=== PATIENT | male | born 1925 | race Caucasian/White ===

== ENCOUNTER 2016-10-04 09:12 | Inpatient (IN) | payer OTHER ==
[~2016-10-04] VITALS: Ht 188 cm; Wt 79.9 kg
[2016-10-04] VITALS (12 sets, daily range): BP systolic 133–174; BP diastolic 47–71
[~2016-10-04 09:12] MED LIST: ALBUTEROL SULF8.5 GM IH; ASPIRIN81 M1 PO; BRAND FLOMAX0.4 MG PO; FUROSEMIDE20 MG PO; FUROSEMIDE40 MG PO; GLUCOVANCE PO; LABETALOL HCL100 MG PO; LOSARTAN POTASS50 MG PO; MIRALAX, GLYCOL1 PKT PO; MORPHINE SULFAT15 M3 PO; SENNA PLUS TAB1 EACH PO; THERAGRAN M PO; VITAMIN B12-FO1 EACH PO; [UNRECOGNIZED DRUG - REMARK]; [UNRECOGNIZED DRUG - REMARK]; [UNRECOGNIZED DRUG - REMARK]
[2016-10-04 10:08] LABS: BASOPHIL COUNT 0.1 K/uL (0-0.1); EOSINOPHIL (%) 8.3 % (0-5); EOSINOPHIL COUNT 0.7 K/uL (0-0.3); HEMATOCRIT 45.3 % (38.0-50.0); IMMATURE GRANULOCYTE (%) 0.6 % (0.0-0.7); IMMATURE GRANULOCYTE COUNT 0.1 K/uL; INSTRUMENT ABS NEUTROPHIL CT 4.4 K/uL; LYMPHOCYTE COUNT 2.6 K/uL (1.0-2.8); MCH 31.5 PG (29.0-34.0); MCHC 33.6 G/DL (30.0-36.0); MEAN PLAT.VOLUME 10.8 uM^3 (9.0-12.4); MONOCYTE (%) 9.2 % (3-12); MONOCYTE COUNT 0.8 K/uL (0-0.8); NEUTROPHIL (%) 50.8 % (45-76); NEUTROPHIL COUNT 4.4 K/uL (1.8-6.4); PLATELET COUNT 170 K/uL (156-360); RBC DIS.WIDTH-CV 13.2 % (11.8-14.6); RBC DIS.WIDTH-SD 45.3 % (39-53); RED BLOOD COUNT 4.82 M/uL (4.00-5.50); WHITE BLOOD COUNT 8.6 K/uL (4.1-10.2)
[2016-10-04 10:18] LABS: CHLORIDE 103 mEq/L (99-109); POTASSIUM 3.9 mEq/L (3.7-5.4); PROTHROMBIN TIME 30.1 (9.2-11.2); PTT 40.1 (25-32); SODIUM 137 mEq/L (136-147)
[2016-10-04 10:20] LABS: GLUCOSE 173 mg/dL (70-99)
[2016-10-04 10:21] LABS: ANION GAP 8 MEQ/L (2-14)
[2016-10-04 10:23] LABS: GFR ESTIMATE (CALCULATED) > 59 mL/min/
[2016-10-04 10:24] LABS: UREA NITROGEN (BUN) 17 mg/dL (9-23)
[2016-10-04 10:25] LABS: INTER. NORMALIZED RATIO 2.9
[2016-10-04 10:28] LABS: TROP-I INTERPRETATION NEGATIVE; TROPONIN-I < 0.01 ng/mL (0.0-0.30)
[2016-10-04] MEDS ORDERED: ASPIR-LOW81 MG PO (12:39)
[2016-10-04] MEDS ORDERED: CALCIUM 600 +1 EAC2 PO (12:41)
[2016-10-04] MEDS ORDERED: WARFARIN SODIUM2 MG PO (12:42)
[2016-10-04] MEDS ORDERED: CHOLESTYRAMINE P4 GM PO (12:42)
[2016-10-04] MEDS ORDERED: HYDROCHLOROTHIA50 MG PO (12:43)
[2016-10-04] MEDS ORDERED: LOSARTAN POTASS25 MG PO (12:44)
[2016-10-04] MEDS ORDERED: MULTI VITAMIN1 EACH PO (12:45)
[2016-10-04] MEDS ORDERED: POTASSIUM CHLO20 ME2 PO (12:45)
[2016-10-04] MEDS ORDERED: FLUOXETINE HCL10 MG PO (12:46)
[2016-10-04] MEDS ORDERED: TRAMADOL HCL50 MG PO (12:47)
[2016-10-04] MEDS ORDERED: TRAZODONE HCL50 MG PO (12:47)
[2016-10-04] MEDS ORDERED: NATURAL BALANCE15 M1 BOTH EYES (12:48)
[2016-10-04] MEDS ORDERED: DULCOLAX10 MG PR (12:48)
[2016-10-04] MEDS ORDERED: FLEET ENEMA-AD118 ML PR (12:49)
[2016-10-04] MEDS ORDERED: MILK OF MAGN PO (12:49)
[2016-10-04] MEDS ORDERED: ACETAMINOPHEN325 M1 PO (12:51)
[2016-10-04 14:06] LABS: METH RESISTANT S AUREUS PCR NEGATIVE (NEGATIVE)
[2016-10-04 14:07] LABS: PROBE CHECK PASS; SPECIMEN PROCESSING CONTROL PASS
[2016-10-05] VITALS (14 sets, daily range): BP systolic 0–156; BP diastolic 0–80
[2016-10-05 09:36] LABS: INTER. NORMALIZED RATIO 3.1; PROTHROMBIN TIME 32.3 (9.2-11.2); PTT 41.9 (25-32)
[2016-10-05 09:54] LABS: Estimated Average Glucose 151 mg/dL (70-123); HEMOGLOBIN A1c (GLYCOHEMOGLOB) 6.9 % HGB (Below 5.7)
[2016-10-05 11:50] LABS: ANION GAP 8 MEQ/L (2-14); CHLORIDE 104 MEQ/L (99-109); MAGNESIUM 1.8 mg/dl (1.3-2.7); SAMPLE HEMOLYSIS CHECK 0; SAMPLE ICTERIC CHECK 0; SAMPLE LIPEMIA CHECK 0; SODIUM 139 MEQ/L (136-147)
[2016-10-05 11:56] LABS: GFR ESTIMATE (CALCULATED) > 59 mL/min/; GLUCOSE 131 mg/dL (70-99); UREA NITROGEN (BUN) 19 mg/dL (9-23)
[2016-10-05 15:07] LABS: INTER. NORMALIZED RATIO 2.8; PROTHROMBIN TIME 29.3 (9.2-11.2); PTT 39.2 (25-32)
[2016-10-06] VITALS (13 sets, daily range): BP systolic 92–170; BP diastolic 36–78
[2016-10-06 04:39] LABS: CHLORIDE 107 mEq/L (99-109); POTASSIUM 4.3 mEq/L (3.7-5.4); SODIUM 141 mEq/L (136-147)
[2016-10-06 04:40] LABS: INTER. NORMALIZED RATIO 1.9; MAGNESIUM 2.3 mg/dL (1.3-2.7); PROTHROMBIN TIME 20.1 (9.2-11.2); PTT 35.7 (25-32)
[2016-10-06 04:41] LABS: GLUCOSE 134 mg/dL (70-99)
[2016-10-06 04:42] LABS: ANION GAP 7 MEQ/L (2-14)
[2016-10-06 04:45] LABS: GFR ESTIMATE (CALCULATED) > 59 mL/min/
[2016-10-06 04:46] LABS: UREA NITROGEN (BUN) 20 mg/dL (9-23)
[2016-10-06 07:48] LABS: FIBRINOGEN 367 MG/DL (160-450)
[2016-10-07] VITALS: BP 143/65
[2016-10-07 02:00] VITALS: BP 143/70
[2016-10-07 04:00] VITALS: BP 129/61
[2016-10-07 06:00] VITALS: BP 123/68
[2016-10-07 07:27] LABS: EOSINOPHIL (%) 6.7 % (0-5); EOSINOPHIL COUNT 0.5 K/uL (0-0.3); HEMATOCRIT 45.4 % (38.0-50.0); IMMATURE GRANULOCYTE (%) 0.4 % (0.0-0.7); INSTRUMENT ABS NEUTROPHIL CT 4.3 K/uL; LYMPHOCYTE COUNT 1.8 K/uL (1.0-2.8); MCH 31.6 PG (29.0-34.0); MCHC 33.7 G/DL (30.0-36.0); MCV 93.8 FL (86-99); MONOCYTE (%) 9.8 % (3-12); MONOCYTE COUNT 0.7 K/uL (0-0.8); NEUTROPHIL (%) 58.4 % (45-76); NEUTROPHIL COUNT 4.3 K/uL (1.8-6.4); PLATELET COUNT 185 K/uL (156-360); RBC DIS.WIDTH-CV 13.3 % (11.8-14.6); RBC DIS.WIDTH-SD 46.2 % (39-53); RED BLOOD COUNT 4.84 M/uL (4.00-5.50); WHITE BLOOD COUNT 7.3 K/uL (4.1-10.2)
[2016-10-07 07:36] LABS: INTER. NORMALIZED RATIO 1.3; PROTHROMBIN TIME 13.5 (9.2-11.2); PTT 31.6 (25-32)
[2016-10-07 07:48] LABS: ANION GAP 6 MEQ/L (2-14); CHLORIDE 107 MEQ/L (99-109); GFR ESTIMATE (CALCULATED) > 59 mL/min/; GLUCOSE 117 mg/dL (70-99); POTASSIUM 4.2 MEQ/L (3.7-5.4); SAMPLE HEMOLYSIS CHECK 0; SAMPLE ICTERIC CHECK 0; SAMPLE LIPEMIA CHECK 0; SODIUM 141 MEQ/L (136-147); UREA NITROGEN (BUN) 20 mg/dL (9-23)
[2016-10-07 08:00] VITALS: BP 155/72
[2016-10-07 12:00] VITALS: BP 134/65
== END 2016-10-07 13:53 | DRG 259 ==
LOC: EME 09:12 → EDOF 11:43 → 4WEST 11:43
PROVIDERS: Emergency Medicine; Internal Medicine Critical Care Medicine
DX: T82.191A Other mechanical complication of cardiac pulse generator (battery), initial encounter (principal); I44.2 Atrioventricular block, complete; C18.9 Malignant neoplasm of colon, unspecified; E11.65 Type 2 diabetes mellitus with hyperglycemia; I11.0 Hypertensive heart disease with heart failure; I50.9 Heart failure, unspecified; I49.5 Sick sinus syndrome; E78.5 Hyperlipidemia, unspecified; J44.9 Chronic obstructive pulmonary disease, unspecified; F02.80 Dementia in other diseases classified elsewhere, unspecified severity, without behavioral disturbance, psychotic disturbance, mood disturbance, and anxiety; G30.9 Alzheimer's disease, unspecified; I27.2 Other secondary pulmonary hypertension; I48.2 Chronic atrial fibrillation; M19.90 Unspecified osteoarthritis, unspecified site; N40.0 Benign prostatic hyperplasia without lower urinary tract symptoms; Y71.1 Therapeutic (nonsurgical) and rehabilitative cardiovascular devices associated with adverse incidents; Z79.01 Long term (current) use of anticoagulants; Z87.11 Personal history of peptic ulcer disease; R42 Dizziness and giddiness
CPT/HCPCS: 36600; 71010; 80048; 82803; 83036; 83605; 83735; 83880; 84100; 84443; 84484; 85025; 85384; 85610; 85730; 87040; 87641; 93005; 93306; 99281; 99285; C1786; J0690; J1200; J2250; J3010; S0020